=== PATIENT | male | born 1945 | race Caucasian/White ===

== ENCOUNTER → 2018-05-27 | Outpatient (CLI) | payer MEDICARE, OTHER ==
[2018-05-26 21:36] VITALS: BP 124/71
[~2018-05-27] MED LIST: AMLODIPINE BES2.5 MG PO; AMOXICILLIN 8751 TAB PO; ASPIRIN E.C. 8181 MG PO; CELEXA 20MG20 MG/TA1 PO; GLIPIZIDE5 MG PO; ISOSORBIDE30 MG PO; LISINOPRIL10 MG PO; LOPRESSOR 225 MG/TAB PO; METFORMIN ER500 MG PO; NITROSTAT0.4 M1 SL; PLAVIX 75MG TAB75 MG PO; ROCEPHIN 2 G2 G/VIAL IV; ROSUVASTATIN CA10 MG PO; TOPAMAX25 M1 PO; VANCOMYCIN HYD750 MG IV
[2018-05-27 08:47] LABS: ALBUMIN 3.9 g/dL (3.5-5.0); CALCIUM 8.6 mg/dL (8.4-10.2); POTASSIUM 4.2 mmol/L (3.6-5.0); TOTAL BILIRUBIN 0.7 mg/dL (0.2-1.3); TOTAL PROTEIN 6.9 g/dL (6.3-8.2)
== END ==
LOC: LAB 08:15
DX: Z51.81 Encounter for therapeutic drug level monitoring (principal); Z79.2 Long term (current) use of antibiotics

== ENCOUNTER → 2018-05-30 | Outpatient (CLI) | payer MEDICARE, OTHER ==
[2018-05-29 22:11] VITALS: BP 139/92
[2018-05-30 09:14] LABS: ALBUMIN 3.8 g/dL (3.5-5.0); CALCIUM 8.2 mg/dL (8.4-10.2); POTASSIUM 4.1 mmol/L (3.6-5.0); TOTAL BILIRUBIN 0.8 mg/dL (0.2-1.3); TOTAL PROTEIN 6.8 g/dL (6.3-8.2)
[2018-05-30 09:23] LABS: HEMATOCRIT 35.9 % (42.0-52.0); HEMOGLOBIN 11.9 g/dL (13.5-18.0); MEAN CELL VOLUME 96 fl (78-100); MEAN CORPUSCULAR HEMOGLOBIN 32 pg (27-31); MEAN CORPUSCULAR HGB CONC 33 g/dL (33-37); MEAN PLATELET VOLUME 11.3 fl (7.4-10.4); PLATELET COUNT 192 K/mm3 (130-400); RED BLOOD COUNT 3.76 M/mm3 (4.20-5.60); RED CELL DISTRIBUTION WIDTH 13.3 % (11.5-14.5); WHITE BLOOD COUNT 5.6 K/mm3 (4.8-10.8)
[2018-05-30 10:46] LABS: BASO # 0.1 (0.02-0.10); EOS # 0.3 (0.04-0.40); LYMPH# 1.5 (1.50-4.00); MONO # 0.6 (0.20-0.80); NEU # 3.4 (1.40-6.50)
[2018-05-30 10:47] LABS: EOS % 5.7 % (0.0-4.0)
[2018-05-30 11:37] LABS: ERYTHROCYTE SEDIMENTATION RATE 20 mm/hr (0-20)
[2018-05-31 06:26] LABS: C-REACTIVE PROTEIN XXX
== END ==
LOC: LAB 08:01
PROVIDERS: Internal Medicine Cardiovascular Disease
DX: I05.9 Rheumatic mitral valve disease, unspecified (principal)

== ENCOUNTER → 2018-06-01 | Outpatient (CLI) | payer MEDICARE, OTHER ==
[2018-05-31 21:00] VITALS: BP 109/62
[~2018-06-01] MED LIST changes: +GLUCOPHAGE1000 MG PO
== END ==
LOC: LAB 07:55
DX: I05.9 Rheumatic mitral valve disease, unspecified (principal)

== ENCOUNTER → 2018-06-06 | Outpatient (CLI) | payer MEDICARE, OTHER ==
[2018-06-05 21:20] VITALS: BP 148/75
[2018-06-06 08:43] LABS: BASO # 0.1 (0.02-0.10); EOS # 0.3 (0.04-0.40); EOS % 4.6 % (0.0-4.0); HEMATOCRIT 34.3 % (42.0-52.0); HEMOGLOBIN 11.2 g/dL (13.5-18.0); LYMPH# 1.7 (1.50-4.00); MEAN CELL VOLUME 96 fl (78-100); MEAN CORPUSCULAR HEMOGLOBIN 31 pg (27-31); MEAN CORPUSCULAR HGB CONC 33 g/dL (33-37); MEAN PLATELET VOLUME 10.9 fl (7.4-10.4); MONO # 0.7 (0.20-0.80); NEU # 4.1 (1.40-6.50); PLATELET COUNT 208 K/mm3 (130-400); RED BLOOD COUNT 3.59 M/mm3 (4.20-5.60); RED CELL DISTRIBUTION WIDTH 13.1 % (11.5-14.5)
[2018-06-06 08:53] LABS: ALBUMIN 3.7 g/dL (3.5-5.0); CALCIUM 8.4 mg/dL (8.4-10.2); POTASSIUM 4.1 mmol/L (3.6-5.0); TOTAL PROTEIN 6.6 g/dL (6.3-8.2)
[2018-06-06 09:50] LABS: ERYTHROCYTE SEDIMENTATION RATE 17 mm/hr (0-20)
[2018-06-06 22:37] LABS: C-REACTIVE PROTEIN XXX
== END ==
LOC: LAB 08:02
PROVIDERS: Internal Medicine Cardiovascular Disease
DX: I05.9 Rheumatic mitral valve disease, unspecified (principal)

== ENCOUNTER → 2018-06-11 | Outpatient (CLI) | payer MEDICARE, OTHER ==
[2018-06-11 09:27] VITALS: BP 99/62
== END ==
LOC: RAD 10:13
DX: Z45.2 Encounter for adjustment and management of vascular access device (principal); Z95.9 Presence of cardiac and vascular implant and graft, unspecified

== ENCOUNTER → 2018-06-13 | Outpatient (CLI) | payer MEDICARE, OTHER ==
[2018-06-12 21:26] VITALS: BP 153/81
[2018-06-13 08:54] LABS: BASO # 0.1 (0.02-0.10); EOS # 0.3 (0.04-0.40); HEMATOCRIT 36.7 % (42.0-52.0); HEMOGLOBIN 11.9 g/dL (13.5-18.0); LYMPH# 1.6 (1.50-4.00); MEAN CELL VOLUME 96 fl (78-100); MEAN CORPUSCULAR HEMOGLOBIN 31 pg (27-31); MEAN CORPUSCULAR HGB CONC 32 g/dL (33-37); MEAN PLATELET VOLUME 10.8 fl (7.4-10.4); MONO # 0.7 (0.20-0.80); NEU # 3.9 (1.40-6.50); PLATELET COUNT 214 K/mm3 (130-400); RED BLOOD COUNT 3.84 M/mm3 (4.20-5.60); RED CELL DISTRIBUTION WIDTH 13.2 % (11.5-14.5); WHITE BLOOD COUNT 6.5 K/mm3 (4.8-10.8)
[2018-06-13 09:06] LABS: ALBUMIN 3.8 g/dL (3.5-5.0); CALCIUM 8.8 mg/dL (8.4-10.2); POTASSIUM 4.1 mmol/L (3.6-5.0); TOTAL BILIRUBIN 0.9 mg/dL (0.2-1.3); TOTAL PROTEIN 6.7 g/dL (6.3-8.2)
[2018-06-13 09:58] LABS: ERYTHROCYTE SEDIMENTATION RATE 14 mm/hr (0-20)
[2018-06-14 00:01] LABS: C-REACTIVE PROTEIN XXX
== END ==
LOC: LAB 08:04
PROVIDERS: Internal Medicine Cardiovascular Disease
DX: I05.9 Rheumatic mitral valve disease, unspecified (principal)

== ENCOUNTER → 2018-06-20 | Outpatient (CLI) | payer MEDICARE, OTHER ==
[2018-06-19 21:15] VITALS: BP 133/83
[2018-06-20 09:33] LABS: BASO # 0.1 (0.02-0.10); EOS # 0.4 (0.04-0.40); EOS % 4.9 % (0.0-4.0); HEMATOCRIT 37.7 % (42.0-52.0); HEMOGLOBIN 12.5 g/dL (13.5-18.0); LYMPH# 2.1 (1.50-4.00); MEAN CELL VOLUME 95 fl (78-100); MEAN CORPUSCULAR HEMOGLOBIN 31 pg (27-31); MEAN CORPUSCULAR HGB CONC 33 g/dL (33-37); MEAN PLATELET VOLUME 10.9 fl (7.4-10.4); MONO # 0.8 (0.20-0.80); PLATELET COUNT 208 K/mm3 (130-400); RED BLOOD COUNT 3.98 M/mm3 (4.20-5.60); WHITE BLOOD COUNT 7.4 K/mm3 (4.8-10.8)
[2018-06-20 09:50] LABS: CALCIUM 8.5 mg/dL (8.4-10.2); POTASSIUM 4.2 mmol/L (3.6-5.0); TOTAL BILIRUBIN 0.9 mg/dL (0.2-1.3); TOTAL PROTEIN 7.3 g/dL (6.3-8.2)
[2018-06-20 12:00] LABS: ERYTHROCYTE SEDIMENTATION RATE 9 mm/hr (0-20)
[2018-06-21 03:23] LABS: C-REACTIVE PROTEIN XXX
== END ==
LOC: LAB 08:03
PROVIDERS: Internal Medicine Cardiovascular Disease
DX: I05.9 Rheumatic mitral valve disease, unspecified (principal)

== ENCOUNTER → 2018-06-21 | Outpatient (CLI) | payer MEDICARE, OTHER ==
[2018-06-20 09:26] VITALS: BP 125/69
== END ==
LOC: LAB 07:53
DX: I05.9 Rheumatic mitral valve disease, unspecified (principal)

== ENCOUNTER → 2018-06-22 | Outpatient (CLI) | payer MEDICARE, OTHER ==
[2018-06-21 08:31] VITALS: BP 134/77
== END ==
LOC: LAB 08:03
DX: I05.9 Rheumatic mitral valve disease, unspecified (principal)

== ENCOUNTER → 2018-06-25 | Outpatient (CLI) | payer MEDICARE, OTHER ==
[2018-06-24 10:10] VITALS: BP 133/76
== END ==
LOC: LAB 08:14
PROVIDERS: Internal Medicine Infectious Disease
DX: Z01.812 Encounter for preprocedural laboratory examination (principal)

== ENCOUNTER → 2018-06-27 | Outpatient (CLI) | payer MEDICARE, OTHER ==
[2018-06-26 10:25] VITALS: BP 155/83
[2018-06-28 07:31] LABS: ALBUMIN 4.1 g/dL (3.5-5.0); CALCIUM 9.1 mg/dL (8.4-10.2); POTASSIUM 4.4 mmol/L (3.6-5.0); TOTAL BILIRUBIN 0.9 mg/dL (0.2-1.3)
== END ==
LOC: LAB 07:45
DX: I05.9 Rheumatic mitral valve disease, unspecified (principal)

== ENCOUNTER → 2018-06-28 | Outpatient (CLI) | payer MEDICARE, OTHER ==
[2018-06-27 10:26] VITALS: BP 131/80
[2018-06-28 09:10] LABS: BASO # 0.1 (0.02-0.10); EOS # 0.3 (0.04-0.40); EOS % 4.1 % (0.0-4.0); HEMATOCRIT 37.1 % (42.0-52.0); HEMOGLOBIN 12.3 g/dL (13.5-18.0); LYMPH# 2.1 (1.50-4.00); MEAN CELL VOLUME 95 fl (78-100); MEAN CORPUSCULAR HEMOGLOBIN 31 pg (27-31); MEAN CORPUSCULAR HGB CONC 33 g/dL (33-37); MEAN PLATELET VOLUME 11.3 fl (7.4-10.4); MONO # 0.8 (0.20-0.80); NEU # 4.8 (1.40-6.50); PLATELET COUNT 226 K/mm3 (130-400); RED BLOOD COUNT 3.92 M/mm3 (4.20-5.60); RED CELL DISTRIBUTION WIDTH 13.2 % (11.5-14.5); WHITE BLOOD COUNT 8.1 K/mm3 (4.8-10.8)
[2018-06-28 09:37] LABS: ERYTHROCYTE SEDIMENTATION RATE 15 mm/hr (0-20)
== END ==
LOC: LAB 07:31
PROVIDERS: Internal Medicine Cardiovascular Disease
DX: I05.9 Rheumatic mitral valve disease, unspecified (principal)

== ENCOUNTER → 2018-07-04 | Outpatient (CLI) | payer MEDICARE, OTHER ==
[2018-07-03 10:20] VITALS: BP 139/87
[2018-07-04 08:40] LABS: BASO # 0.1 (0.02-0.10); EOS # 0.3 (0.04-0.40); EOS % 4.2 % (0.0-4.0); HEMATOCRIT 34.6 % (42.0-52.0); HEMOGLOBIN 11.7 g/dL (13.5-18.0); LYMPH# 1.2 (1.50-4.00); MEAN CELL VOLUME 94 fl (78-100); MEAN CORPUSCULAR HEMOGLOBIN 32 pg (27-31); MEAN CORPUSCULAR HGB CONC 34 g/dL (33-37); MEAN PLATELET VOLUME 11.1 fl (7.4-10.4); MONO # 0.6 (0.20-0.80); PLATELET COUNT 191 K/mm3 (130-400); RED BLOOD COUNT 3.69 M/mm3 (4.20-5.60); RED CELL DISTRIBUTION WIDTH 13.1 % (11.5-14.5); WHITE BLOOD COUNT 6.2 K/mm3 (4.8-10.8)
[2018-07-04 08:46] LABS: ALBUMIN 3.8 g/dL (3.5-5.0); CALCIUM 8.3 mg/dL (8.4-10.2); POTASSIUM 4.1 mmol/L (3.6-5.0); TOTAL BILIRUBIN 0.9 mg/dL (0.2-1.3); TOTAL PROTEIN 6.8 g/dL (6.3-8.2)
[2018-07-04 09:46] LABS: ERYTHROCYTE SEDIMENTATION RATE 15 mm/hr (0-20)
[2018-07-04 16:21] LABS: C-REACTIVE PROTEIN XXX
== END ==
LOC: LAB 08:02
PROVIDERS: Internal Medicine Cardiovascular Disease
DX: I05.9 Rheumatic mitral valve disease, unspecified (principal)

== ENCOUNTER → 2018-07-05 | Outpatient (CLI) | payer MEDICARE, OTHER ==
[2018-07-04 11:13] VITALS: BP 118/60
== END ==
LOC: LAB 08:01
DX: I05.9 Rheumatic mitral valve disease, unspecified (principal)

== ENCOUNTER → 2018-07-08 | Outpatient (CLI) | payer MEDICARE, OTHER ==
[2018-07-07 09:15] VITALS: BP 120/68
== END ==
LOC: LAB 08:06
DX: I38 Endocarditis, valve unspecified (principal)

== ENCOUNTER → 2018-07-11 | Outpatient (CLI) | payer MEDICARE, OTHER ==
[2018-07-11 08:16] VITALS: BP 108/73
[2018-07-11 10:10] LABS: BASO # 0.1 (0.02-0.10); EOS # 0.3 (0.04-0.40); EOS % 3.9 % (0.0-4.0); HEMOGLOBIN 11.1 g/dL (13.5-18.0); LYMPH# 1.9 (1.50-4.00); MEAN CELL VOLUME 96 fl (78-100); MEAN CORPUSCULAR HEMOGLOBIN 31 pg (27-31); MEAN CORPUSCULAR HGB CONC 33 g/dL (33-37); MEAN PLATELET VOLUME 11.1 fl (7.4-10.4); MONO # 0.7 (0.20-0.80); NEU # 3.6 (1.40-6.50); PLATELET COUNT 190 K/mm3 (130-400); RED BLOOD COUNT 3.56 M/mm3 (4.20-5.60); RED CELL DISTRIBUTION WIDTH 13.3 % (11.5-14.5); WHITE BLOOD COUNT 6.5 K/mm3 (4.8-10.8)
[2018-07-11 10:46] LABS: ALBUMIN 3.6 g/dL (3.5-5.0); CALCIUM 8.3 mg/dL (8.4-10.2); POTASSIUM 3.9 mmol/L (3.6-5.0); TOTAL BILIRUBIN 0.7 mg/dL (0.2-1.3); TOTAL PROTEIN 6.5 g/dL (6.3-8.2)
[2018-07-11 11:26] LABS: ERYTHROCYTE SEDIMENTATION RATE 12 mm/hr (0-20)
== END ==
LOC: LAB 08:23
PROVIDERS: Internal Medicine Cardiovascular Disease
DX: B99.9 Unspecified infectious disease (principal)

== ENCOUNTER → 2018-07-12 | Outpatient (CLI) | payer MEDICARE, OTHER ==
[2018-07-11 09:45] VITALS: BP 113/65
== END ==
LOC: LAB 07:41
DX: I05.9 Rheumatic mitral valve disease, unspecified (principal)

== ENCOUNTER → 2018-07-18 | Outpatient (CLI) | payer MEDICARE, OTHER ==
[2018-07-17 10:35] VITALS: BP 140/79
[2018-07-18 09:37] LABS: BASO # 0.1 (0.02-0.10); EOS # 0.2 (0.04-0.40); EOS % 3.5 % (0.0-4.0); HEMATOCRIT 38.8 % (42.0-52.0); HEMOGLOBIN 12.9 g/dL (13.5-18.0); LYMPH# 1.6 (1.50-4.00); MEAN CELL VOLUME 95 fl (78-100); MEAN CORPUSCULAR HEMOGLOBIN 32 pg (27-31); MEAN CORPUSCULAR HGB CONC 33 g/dL (33-37); MEAN PLATELET VOLUME 11.8 fl (7.4-10.4); MONO # 0.5 (0.20-0.80); NEU # 3.7 (1.40-6.50); PLATELET COUNT 192 K/mm3 (130-400); RED BLOOD COUNT 4.08 M/mm3 (4.20-5.60); RED CELL DISTRIBUTION WIDTH 13.2 % (11.5-14.5)
[2018-07-18 09:43] LABS: ALBUMIN 4.1 g/dL (3.5-5.0); CALCIUM 8.9 mg/dL (8.4-10.2); POTASSIUM 4.2 mmol/L (3.6-5.0); TOTAL BILIRUBIN 0.9 mg/dL (0.2-1.3); TOTAL PROTEIN 7.2 g/dL (6.3-8.2)
[2018-07-18 10:55] LABS: ERYTHROCYTE SEDIMENTATION RATE 23 mm/hr (0-20)
[2018-07-18 19:12] LABS: C-REACTIVE PROTEIN XXX
== END ==
LOC: LAB 08:07
PROVIDERS: Internal Medicine Cardiovascular Disease
DX: I05.9 Rheumatic mitral valve disease, unspecified (principal)

== ENCOUNTER → 2018-07-21 | Outpatient (CLI) | payer MEDICARE, OTHER ==
[2018-07-20 15:40] VITALS: BP 146/85
[2018-07-21 10:48] LABS: ALBUMIN 4.1 g/dL (3.5-5.0); POTASSIUM 4.2 mmol/L (3.6-5.0); TOTAL BILIRUBIN 1.1 mg/dL (0.2-1.3); TOTAL PROTEIN 7.2 g/dL (6.3-8.2)
== END ==
LOC: LAB 10:16
PROVIDERS: Internal Medicine Cardiovascular Disease
DX: N18.9 Chronic kidney disease, unspecified (principal); E78.5 Hyperlipidemia, unspecified

== ENCOUNTER 2018-07-22 08:10 | Outpatient (RCR) | payer MEDICARE, OTHER ==
[2018-05-24 08:10] VITALS: BP 120/59
[2018-05-24 10:38] VITALS: BP 109/69
[2018-05-24 20:00] VITALS: BP 146/74
[2018-05-24 21:45] VITALS: BP 134/70
--- NOTE | 2018-05-25 08:28 | NUR ---
PATIENT ARRIVES TO NURSE'S STATION AT THIS TIME. HE APOLOGIZES FOR BEING LATE DUE TO A FAMILY EMERGENCY. HE APPEARS SOMEWHAT ANXIOUS IN CONVERSATION; EVIDENCED BY RAPID SPEECH AND FIDGETING HAND GESTURES. HE HAS A DENTAL APPOINTMENT AT 1100 THAT HE DOES NOT WANT TO MISS SINCE AN INFECTED TOOTH CAUSED HIS CURRENT PREDICAMENT. HE WOULD LIKE TO SKIP HIS AM DOSE TODAY TO DEAL WITH HIS EMERGENCY AND ATTEND HIS DENTAL APPOINTMENT. SPOKE WITH LAWSON PHARMACIST AT [facility] REGARDING SITUATION. SHE ORDERS TO GIVE ROCEPHIN TONIGHT AND MOVE VANC TROUGH TO WEDNESDAY THE , BEFORE HIS MORNING DOSE.
[2018-05-25 20:00] VITALS: BP 114/66
[2018-05-25 21:48] VITALS: BP 110/59
[2018-05-26 09:01] VITALS: BP 120/64
[2018-05-26 10:27] VITALS: BP 117/53
[2018-05-26 20:03] VITALS: BP 129/79
[2018-05-26 21:36] VITALS: BP 124/71
[2018-05-27 08:15] VITALS: BP 94/57
--- NOTE | 2018-05-27 08:15 | NUR ---
Unable to flush purple lumen. Red lumen used to draw trough and CMP prior to infusion. Flushed w/ 10 ml NS and Rocephin hung.
--- NOTE | 2018-05-27 09:00 | NUR ---
unable to still flush purple lumen. Cap to lumen changed and now able to flush purple lumen - good blood return. Vancomycin infuses without trouble via purple lumen. Earlier pharmacy contacted and advised not to infuse vanco and rocephin together in same lumen.
[2018-05-27 10:31] VITALS: BP 122/62
[2018-05-27 20:10] VITALS: BP 151/65
[2018-05-27 21:40] VITALS: BP 114/63
[2018-05-28 08:03] VITALS: BP 143/79
[2018-05-28 09:41] VITALS: BP 140/85
[2018-05-28 20:05] VITALS: BP 118/65
[2018-05-28 21:39] VITALS: BP 127/52
--- NOTE | 2018-05-29 08:09 | NUR ---
Pt's red lumen unable to be flushed or blood unable to be drawn back. Cap changed and lumen then flushed w/ 10 ml - sluggish. Blood return noted.
[2018-05-29 08:22] VITALS: BP 106/58
[2018-05-29 09:55] VITALS: BP 103/58
--- NOTE | 2018-05-29 09:55 | NUR ---
Lumens flushed w/ 1 ml heplock after infusions are lumens being hard to flush (purple on wednesday) and (red on Wednesday).
[2018-05-29 20:00] VITALS: BP 147/74
[2018-05-29 22:11] VITALS: BP 139/92
[2018-05-30 08:04] VITALS: BP 153/69
[2018-05-30 09:57] VITALS: BP 113/55
[2018-05-30 19:10] VITALS: BP 144/84
[2018-05-30 20:00] VITALS: BP 140/98
[2018-05-31 08:05] VITALS: BP 86/42
[2018-05-31 08:35] VITALS: BP 103/59
[2018-05-31 09:20] VITALS: BP 105/49
[2018-05-31 20:16] VITALS: BP 133/73
[2018-05-31 21:00] VITALS: BP 109/62
[2018-06-01 08:24] VITALS: BP 142/76
[2018-06-01 09:18] VITALS: BP 111/54
--- NOTE | 2018-06-01 19:06 | NUR ---
CONTACTED JESSA WITH PHARMACY IN [place]. HE IS AWARE OF 20.10 UG/ML VANCO TROUGH DRAWN BEFORE THIS AM DOSE. INFORMS THIS RN THAT CURRENT DOSE WILL REMAIN CURRENTLY ORDERED.
[2018-06-01 19:59] VITALS: BP 151/79
--- NOTE | 2018-06-01 20:40 | NUR ---
INFORMED PROVIDER, Janay MCKAY APRN, OF ADDITIONAL DOSE OF ROCEPHIN GIVEN TONIGHT. PROVIDER INFORMS THIS RN THAT THIS WILL NOT BE DETRIMENTAL TO PT HEALTH, GIVES NO ADDITIONAL ORDERS. INSTRUCTS TO CONTINUE WITH NEXT DOSE ORDERED.
[2018-06-01 21:05] VITALS: BP 137/78
[2018-06-02 08:15] VITALS: BP 123/66
[2018-06-02 19:57] VITALS: BP 136/90
[2018-06-02 21:05] VITALS: BP 125/71
[2018-06-03 08:00] VITALS: BP 161/80
[2018-06-03 09:15] VITALS: BP 160/82
[2018-06-03 20:09] VITALS: BP 133/77
[2018-06-03 21:12] VITALS: BP 142/84; BP 146/84
[2018-06-04 08:11] VITALS: BP 125/88
[2018-06-04 20:05] VITALS: BP 115/67
[2018-06-04 21:19] VITALS: BP 115/65
[2018-06-05 08:10] VITALS: BP 125/72
[2018-06-05 20:05] VITALS: BP 113/66
[2018-06-05 21:20] VITALS: BP 148/75
--- NOTE | 2018-06-05 21:20 | NUR ---
Tolerated vancomycin IV antibiotic infusion without difficulty. PICC lines, red and purple ports flushed with normal saline without difficulty. No redness, no swelling and none tender to touch. Dressing to PICC line CDI. Pt reminded that he will need to have his blood draw done in the morning before his next dose of vancomycin. Pt agreed.
[2018-06-06 08:09] VITALS: BP 117/66
[2018-06-06 09:36] VITALS: BP 112/60
[2018-06-06 20:05] VITALS: BP 138/73
[2018-06-06 21:20] VITALS: BP 130/77
[2018-06-07 08:16] VITALS: BP 144/71
[2018-06-07 09:25] VITALS: BP 132/75
[2018-06-07 20:55] VITALS: BP 150/83
[2018-06-07 22:13] VITALS: BP 148/78
[2018-06-08 08:30] VITALS: BP 151/75
[2018-06-08 09:47] VITALS: BP 105/61
[2018-06-08 20:13] VITALS: BP 128/86
[2018-06-08 21:17] VITALS: BP 126/74
[2018-06-09 08:05] VITALS: BP 124/70
--- NOTE | 2018-06-09 08:14 | NUR ---
FLUSH LUMENS WITH 20ML NS EACH; BOTH FLUSH HARD. UNABLE TO OBTAIN BLOOD RETURN TO RED LUMEN. THERE IS DARK RED DRAINAGE NOTED UNDER TEGADERM THAT PATIENT SAYS WAS NOT THERE YESTERDAY. NO TENDERNESS TO INSERTION SITE.
[2018-06-09 09:40] VITALS: BP 124/70
[2018-06-09 20:07] VITALS: BP 140/74
[2018-06-10 08:04] VITALS: BP 112/58
[2018-06-10 09:35] VITALS: BP 122/74
[2018-06-10 20:06] VITALS: BP 152/87
[2018-06-10 21:10] VITALS: BP 139/85
[2018-06-11 09:27] VITALS: BP 99/62
[2018-06-11 09:45] VITALS: BP 125/73
[2018-06-11 20:00] VITALS: BP 133/77
--- NOTE | 2018-06-11 20:15 | NUR ---
Double lumen PICC to right upper arm. Sluggish blood return noted to both lumens. Blood return to red lumen more sluggish than purple lumen. Red lumen is also more difficult to flush. Both lumens flushed with approximately 50 ml NS. PICC dressing is clean, dry, and intact. No redness, drainage, or edema noted to PICC insertion site.
--- NOTE | 2018-06-11 21:45 | NUR ---
Chest x-ray, lateral view ordered to confirm PICC placement per Dr. Maher.
[2018-06-11 21:49] VITALS: BP 144/74
--- NOTE | 2018-06-12 08:29 | NUR ---
BOTH LUMENS FLUSH. NO BLOOD RETURN NOTED TO EITHER. DR NEW NOTIFIED. HE REVIEWS XRAYS AND GIVES ORDER TO USE PICC LINE.
[2018-06-12 08:52] VITALS: BP 138/78
[2018-06-12 09:42] VITALS: BP 123/74
[2018-06-12 20:00] VITALS: BP 139/82
--- NOTE | 2018-06-12 20:47 | NUR ---
Double lumen PICC to right upper arm. Sluggish blood return noted to purple lumen, less sluggish than yesterday. No blood return to red lumen. Red lumen continues to be difficult to flush. Chest x-ray confirms correct placement of tip. PICC dressing clean, dry, and intact.
[2018-06-12 21:26] VITALS: BP 153/81
[2018-06-13 08:16] VITALS: BP 116/64
--- NOTE | 2018-06-13 08:32 | NUR ---
UNABLE TO OBTAIN BLOOD RETURN AFTER SEVERAL ATTEMPTS AND FLUSHES TO BOTH LUMENS. LAB CALLED FOR PERIPHERAL COLLECTION. PICC FLUSHES EASILY.
--- NOTE | 2018-06-13 09:30 | NUR ---
BOTH LUMENS FLUSHING EASILY AT THIS TIME, NO BLOOD RETURN ON RED LUMEN, SCANT BLOOD RETURN ON PURPLE LUMEN, PLACEMENT VERIFIED BY XRAY ON 06/11/18
[2018-06-13 09:39] VITALS: BP 114/55
--- NOTE | 2018-06-13 19:33 | NUR ---
CALL TO PHARMACY AT THIS TIME, HENRY REPORTS THAT THE LEVEL WAS 19.8 WHICH IS NORMAL RANGE, PHARMACY STATES THEY WILL ORDER A NEW TROUGH LEVEL TO BE DRAWN "SOMETIME NEXT WEEK, IT'LL BE A WHILE," WILL PASS THIS INFORMATION ON IN REPORT TO ONCOMING NURSE
[2018-06-13 20:08] VITALS: BP 132/77
[2018-06-13 21:17] VITALS: BP 158/80
[2018-06-14 08:25] VITALS: BP 149/58
[2018-06-14 09:26] VITALS: BP 148/84
[2018-06-14 20:03] VITALS: BP 162/88
[2018-06-14 21:13] VITALS: BP 186/93
[2018-06-15 08:30] VITALS: BP 100/62; BP 100/65
[2018-06-15 10:09] VITALS: BP 114/65
[2018-06-15 20:13] VITALS: BP 131/72
[2018-06-15 21:20] VITALS: BP 116/67
[2018-06-16 08:04] VITALS: BP 129/67
[2018-06-16 09:15] VITALS: BP 142/82
[2018-06-16 20:06] VITALS: BP 131/80
[2018-06-16 21:18] VITALS: BP 130/80
[2018-06-17 08:19] VITALS: BP 146/99
[2018-06-17 09:18] VITALS: BP 141/78
[2018-06-17 20:10] VITALS: BP 151/80
[2018-06-17 21:18] VITALS: BP 136/69
[2018-06-18 07:56] VITALS: BP 108/62
[2018-06-18 09:05] VITALS: BP 121/74
[2018-06-18 20:28] VITALS: BP 161/92
--- NOTE | 2018-06-18 20:31 | NUR ---
Purple and Red PICC line lumens flush at this time. This RN unable to aspirate blood return. Pt instructed to cough and deep breathe. No blood retun noted. Dr. Maher notified. PICC appears to be 2 cm from hub to insertion. This is corresponding to previous documentations. Dr. Maher states PICC ok to use at this time. Moderate amount of redness noted to insertion site. Per patient this occurs "sometimes after a dressing change."
[2018-06-18 21:28] VITALS: BP 147/83
[2018-06-19 08:04] VITALS: BP 111/57
[2018-06-19 09:10] VITALS: BP 113/67
[2018-06-19 20:05] VITALS: BP 149/79
[2018-06-19 21:15] VITALS: BP 133/83
[2018-06-20 08:33] VITALS: BP 120/81
[2018-06-20 09:26] VITALS: BP 125/69
[2018-06-21 08:31] VITALS: BP 134/77
[2018-06-22 08:08] VITALS: BP 140/81
[2018-06-22 09:20] VITALS: BP 155/85
[2018-06-22 20:20] VITALS: BP 134/74
--- NOTE | 2018-06-22 20:28 | NUR ---
BRENT RN IN WITH PATIENT TO DISCUSS NEW ORDERS.
[2018-06-22 21:50] VITALS: BP 138/84
[2018-06-23 08:27] VITALS: BP 129/85
[2018-06-24 08:14] VITALS: BP 140/75
[2018-06-24 10:10] VITALS: BP 133/76
--- NOTE | 2018-06-25 08:30 | NUR ---
10 mls blood withdrawn and wasted from purple lumen. 7 mls of blood then drawn for ordered vancomycin trough this am. Lab in room. Lumen flushed w/ 10 ml NS and antibiotics started as ordered.
[2018-06-25 09:11] VITALS: BP 134/76
--- NOTE | 2018-06-25 09:55 | NUR ---
PICC lumens x 2 with good blood return this am.Insertion site of PICC minimally red but no drainage or swelling. PICC drsg changed per protocol without difficulty.
[2018-06-25 10:07] VITALS: BP 154/89
[2018-06-26 08:15] VITALS: BP 162/70
[2018-06-26 10:25] VITALS: BP 155/83
[2018-06-27 08:15] VITALS: BP 151/80
[2018-06-27 10:26] VITALS: BP 131/80
[2018-06-28 08:14] VITALS: BP 105/83
[2018-06-28 10:44] VITALS: BP 107/69
--- NOTE | 2018-06-28 20:56 | NUR ---
[facility] STATES THAT VANCOMYCIN TROUGH LEVEL IS 14.4. JESSA STATES TO KEEP DOSE AT 1.75 G OF VANCO DAILY AND REPEAT TROUGH ON 07/04 BEFORE AM DOSE.
[2018-06-29 08:38] VITALS: BP 121/74
[2018-06-29 10:44] VITALS: BP 159/86
[2018-06-30 08:28] VITALS: BP 155/77
[2018-06-30 10:56] VITALS: BP 163/66
[2018-07-01 08:05] VITALS: BP 156/93
[2018-07-01 10:12] VITALS: BP 150/86
[2018-07-02 08:39] VITALS: BP 157/63
[2018-07-02 10:40] VITALS: BP 149/79
[2018-07-03 08:11] VITALS: BP 164/81
[2018-07-03 10:20] VITALS: BP 139/87
[2018-07-04 08:07] VITALS: BP 131/58
[2018-07-04 11:13] VITALS: BP 118/60
[2018-07-05 08:00] VITALS: BP 128/61
[2018-07-05 08:50] VITALS: BP 131/86
--- NOTE | 2018-07-05 14:30 | NUR ---
CALLED [facility] WITH VANC TROUGH RESULTS. BARB REPORTS SHE WILL CHANGE DOSE FOR PT LAST 2 DOSES. THEN PT COURSE WILL BE COMPLETE
[2018-07-06 08:07] VITALS: BP 128/67
[2018-07-06 09:13] VITALS: BP 129/64
[2018-07-07 08:08] VITALS: BP 106/50
[2018-07-07 09:15] VITALS: BP 120/68
[2018-07-08 09:56] VITALS: BP 128/56
[2018-07-09 08:20] VITALS: BP 141/74
[2018-07-09 09:45] VITALS: BP 135/79
[2018-07-10 08:25] VITALS: BP 104/68
[2018-07-10 09:39] VITALS: BP 121/71
[2018-07-11 08:16] VITALS: BP 108/73
[2018-07-11 09:45] VITALS: BP 113/65
--- NOTE | 2018-07-11 17:13 | NUR ---
LABS DRAWN ON 07/11/18 WERE DRAWN AFTER VANCO DOSE WAS INFUSED. TROUGH WAS NOT DUE TO BE DRAWN UNTIL TOMORROW. NOTIFIED PHARMACY, CHERYL, THAT TROUGH RESULTS FROM THIS AM ARE NOT CORRECT AND TROUGH WILL BE DRAWN BEFORE TOMORROW MORNINGS DOSE PREVIOUSLY SCHEDULED.
[2018-07-12 08:30] VITALS: BP 130/64
[2018-07-12 09:45] VITALS: BP 107/79
[2018-07-13 08:21] VITALS: BP 146/86
[2018-07-13 09:30] VITALS: BP 142/80
[2018-07-14 08:49] VITALS: BP 124/67
[2018-07-14 09:23] VITALS: BP 114/69
[2018-07-15 08:59] VITALS: BP 119/71
[2018-07-15 09:54] VITALS: BP 115/56
[2018-07-16 08:32] VITALS: BP 112/70
[2018-07-16 09:20] VITALS: BP 112/64
[2018-07-17 08:05] VITALS: BP 117/49
[2018-07-17 10:35] VITALS: BP 140/79
[2018-07-18 08:30] VITALS: BP 109/81
[2018-07-18 09:25] VITALS: BP 101/51
[2018-07-19 08:36] VITALS: BP 95/48
[2018-07-20 13:52] VITALS: BP 136/84
[2018-07-20 15:40] VITALS: BP 146/85
[2018-07-21 10:29] VITALS: BP 132/68
[2018-07-21 12:00] VITALS: BP 150/71
[~2018-07-22] VITALS: Ht 185.4 cm; Wt 102.3 kg
[2018-07-22 08:20] VITALS: BP 107/54
[2018-07-23 09:55] VITALS: BP 116/74
== END 2018-08-22 | disposition home or self-care (01) ==
LOC: AMSURD
DX: I05.9 Rheumatic mitral valve disease, unspecified (principal); B99.9 Unspecified infectious disease; E78.5 Hyperlipidemia, unspecified; N18.9 Chronic kidney disease, unspecified; Z79.2 Long term (current) use of antibiotics; Z45.2 Encounter for adjustment and management of vascular access device; Z95.9 Presence of cardiac and vascular implant and graft, unspecified
CPT/HCPCS: J0696; J1644; J3370; J7040; J7050

== ENCOUNTER → 2018-07-22 | Outpatient (CLI) | payer MEDICARE, OTHER ==
[2018-07-21 12:00] VITALS: BP 150/71
== END ==
LOC: LAB 08:12
DX: I05.9 Rheumatic mitral valve disease, unspecified (principal)

== ENCOUNTER 2018-08-26 14:17 | Outpatient (RCR) | payer MEDICARE, OTHER | END 2018-11-24 | disposition home or self-care (01) | LOC: CARDREHAB | DX: Z48.812 Encounter for surgical aftercare following surgery on the circulatory system (principal); Z95.5 Presence of coronary angioplasty implant and graft ==

== ENCOUNTER 2018-11-25 10:00 | Outpatient (RCR) | payer MEDICARE, OTHER | END 2018-12-12 14:13 | disposition home or self-care (01) | LOC: CARDREHAB 10:00 | DX: Z48.812 Encounter for surgical aftercare following surgery on the circulatory system (principal); Z95.1 Presence of aortocoronary bypass graft ==

== ENCOUNTER 2019-07-28 18:43 | Emergency (ER) | payer MEDICARE, OTHER ==
[~2019-07-28] VITALS: Ht 188 cm; Wt 80.9 kg
[2019-07-28 19:17] LABS: EOS # 0.1 (0.04-0.40); EOS % 0.8 % (0.0-4.0); HEMATOCRIT 34.6 % (42.0-52.0); HEMOGLOBIN 11.2 g/dL (13.5-18.0); LYMPH# 1.1 (1.50-4.00); MEAN CELL VOLUME 96 fl (78-100); MEAN CORPUSCULAR HEMOGLOBIN 31 pg (27-31); MEAN CORPUSCULAR HGB CONC 32 g/dL (33-37); MEAN PLATELET VOLUME 10.5 fl (7.4-10.4); MONO # 0.7 (0.20-0.80); NEU # 4.4 (1.40-6.50); PLATELET COUNT 193 K/mm3 (130-400); RED BLOOD COUNT 3.61 M/mm3 (4.20-5.60); RED CELL DISTRIBUTION WIDTH 13.3 % (11.5-14.5); WHITE BLOOD COUNT 6.3 K/mm3 (4.8-10.8)
[2019-07-28 19:37] LABS: ALBUMIN 3.7 g/dL (3.4-4.8)
[2019-07-28 19:38] LABS: POTASSIUM 3.8 mmol/L (3.5-5.1)
[2019-07-28 19:39] LABS: CALCIUM 8.6 mg/dL (8.3-10.5)
[2019-07-28 19:40] LABS: TOTAL PROTEIN 6.5 g/dL (6.2-8.1)
[2019-07-28 19:41] LABS: PROTHROMBIN TIME 10.2 SECONDS (9.0-12.0)
[2019-07-28 19:42] LABS: TOTAL BILIRUBIN 1.5 mg/dL (0.2-1.2)
[2019-07-28 22:09] VITALS: BP 159/82
== END 2019-07-28 22:15 | disposition home or self-care (01) ==
LOC: ED 18:43
PROVIDERS: Physician Assistant
DX: G43.909 Migraine, unspecified, not intractable, without status migrainosus (principal); E86.0 Dehydration; I25.2 Old myocardial infarction; Z79.02 Long term (current) use of antithrombotics/antiplatelets; Z79.82 Long term (current) use of aspirin; Z86.73 Personal history of transient ischemic attack (TIA), and cerebral infarction without residual deficits; Z95.5 Presence of coronary angioplasty implant and graft; Z88.2 Allergy status to sulfonamides
CPT/HCPCS: J1885; J2270; J7030

== ENCOUNTER 2019-09-13 09:30 | Outpatient (RCR) | payer MEDICARE, OTHER | END 2019-09-17 | disposition still patient (30) | LOC: CARDREHAB | DX: I21.9 Acute myocardial infarction, unspecified (principal); I21.4 Non-ST elevation (NSTEMI) myocardial infarction; I25.119 Atherosclerotic heart disease of native coronary artery with unspecified angina pectoris; I34.8 Other nonrheumatic mitral valve disorders; H91.90 Unspecified hearing loss, unspecified ear; E11.22 Type 2 diabetes mellitus with diabetic chronic kidney disease; I12.9 Hypertensive chronic kidney disease with stage 1 through stage 4 chronic kidney disease, or unspecified chronic kidney disease; N18.9 Chronic kidney disease, unspecified; E78.2 Mixed hyperlipidemia; M48.00 Spinal stenosis, site unspecified; G43.909 Migraine, unspecified, not intractable, without status migrainosus; K21.9 Gastro-esophageal reflux disease without esophagitis; Z79.02 Long term (current) use of antithrombotics/antiplatelets ==

== ENCOUNTER 2019-09-20 10:45 | Outpatient (RCR) | payer MEDICARE, OTHER | END 2019-09-20 11:15 | disposition still patient (30) | LOC: PT 10:45 | DX: M62.830 Muscle spasm of back (principal) ==